=== PATIENT | male | born 1985 | race Hispanic/Latino ===

== ENCOUNTER 2019-03-14 07:17 | Inpatient (IN) | payer MEDICAID ==
[2019-03-14] MEDS ORDERED: Ondansetron PF 4 MG/2 ML Vial ONE (07:43)
[2019-03-14] MEDS ORDERED: Pantoprazole 80 MG in Sodium Chloride 0.9% 100 ML IVP SCH (08:00)
[2019-03-14 08:05] LABS: INR-International Normal Ratio 1.7; PTT 53.1 SEC (22.9-36.1); Prothrombin Time 19.4 SEC (12.0-14.7)
[2019-03-14] MEDS ORDERED: Pantoprazole 40 MG VIAL ONE (08:17)
--- NOTE | 2019-03-14 08:17 | ULT ---
Gallbladder ultrasound: Multiple grayscale and Doppler color flow images of right upper quadrant obtained according to protoc ol. INDICATION: Pain FINDINGS: Liver: Increased echogenicity. Slight nodularity of the hepatic contour. Gallbladder: No shadowing cholelithiasis. There is moderate distention. Gallbladder wall: Mild thickening. Kennedy's Sign: Positive. Common bile duct is normal. Ascites: None Incidental note of hepatofugal flow of the main portal vein. IMPRESSION: Mild gallbladder wall thickening and distention with positive Kennedy sign. Correlate with physical ex am for evidence of cholecystitis. Surgical consultation may prove useful. Hepatofugal flow documented within main portal vein. Correlate for evidence of portal hypertension. Increased hepatic echogenicity which may be on the basis of hepatocellular disease and/or hepatic diann atosis. A very slight nodular contour of the liver may relate to early cirrhotic changes.
[2019-03-14] MEDS ORDERED: Morphine 4 MG/ML VIAL ONE (10:58)
[2019-03-14] MEDS ORDERED: Ondansetron ODT 4 MG TAB PO PRN (11:44)
[2019-03-14] MEDS ORDERED: Acetaminophen 325 MG TAB PO PRN (11:44)
[2019-03-14] MEDS ORDERED: Octreotide Acetate 1,250 MCG in Sodium Chloride 0.9% 250 ML 250 ML IVPB SCH ×2 (11:45→14:30)
[2019-03-14] MEDS ORDERED: PROPOFOL 200 MG/20 ML VIAL ONE (11:49)
[2019-03-14] MEDS ORDERED: Lidocaine 1% PF 5 ML VIAL ONE (11:49)
--- NOTE | 2019-03-14 12:25 | CON ---
DATE OF CONSULTATION: HISTORY OF PRESENT ILLNESS: Micah Baltazar is a 34-year-old male patient, alcoholic, reported to [facility], because of onset of right upper and lateral abdominal pain yesterday. He has been experiencing nausea and vomiting, reported significant hematochezia and blood in his emesis. He was evaluated in [facility] and noted to have a sodium of 132, BUN 6, creatinine 0.9, bilirubin of 3.6, AST and ALT 67 and 19 respectfully, lipase 87. Ammonia 73. Lactic acid 1.5. White count was 7, hemoglobin 8.9, and platelet count 68,000. His drug screen was positive, presumptive for cocaine and opiates. His alcohol level was elevated. The patient reports he smokes more than 6 packs a day. He does not smoke. He had a CAT scan in [place] demonstrating mild gallbladder wall thickening, minimal fat stranding, no gallstones. He had an ultrasound of his gallbladder at this institution on arrival, noting normal bile duct caliber, no gallstones, and nodular liver. There are no other laboratories to compare at this institution. On his ultrasound, there was noted to be hepatofugal flow within the main portal vein and correlate for evidence of portal hypertension. Increased hepatic echogenicity suggesting hepatocellular disease or steatosis. The very nodular contour of liver may reflect early cirrhotic changes. Viral serology is not available. ALLERGIES: PENICILLIN. SOCIAL HISTORY: Tobacco, none. Alcohol, more than 6 packs a day. The patient has worked in [employer] off and on and lives with his father. PAST SURGICAL HISTORY: ORIF fibula, ORIF ankle, Endy Jd surgery at right elbow, laparoscopic band placement in 2006 when he weighed 420 pounds. He lost down to 275 pounds, currently weighs 320 pounds. He had all the saline removed from his Lap-Band 3 years ago and there is no restriction, this was intended to in [place]. The patient had a laparotomy 13 years ago for intraabdominal bleeding. He developed an incisional hernia in his upper midline incision and underwent laparoscopic mesh repair in [place], [place]. His laparotomy for his bleeding was performed in [facility] in [place]. PAST MEDICAL HISTORY: Thrombocytopenia, alcoholism, and suspect cirrhosis. REVIEW OF SYSTEMS: Otherwise noncontributory. PHYSICAL EXAMINATION: VITAL SIGNS: Heart rate 88, blood pressure 141/75, and respiratory rate 18. HEAD, EARS, EYES, NOSE, AND THROAT: Unremarkable. LUNGS: Clear to auscultation. CARDIAC: Regular rate and rhythm without murmur or gallop. ABDOMEN: Obese. Midline incision noted xiphoid to below umbilicus. Mild tenderness, right abdomen. Remainder of the abdomen is soft and nontender. EXTREMITIES: Unremarkable. Scars, right lower extremity consistent with past surgical history. ASSESSMENT AND PLAN: 1. Alcoholism with thrombocytopenia, nodular appearance, reflecting early cirrhosis on his ultrasound. His platelet count is low and his clotting studies are slightly abnormal. Currently, there is no definitive evidence for gallbladder disease and I do not think cholecystectomy is indicated. We will order a HIDA scan without ejection fraction to rule out cholecystitis. If he did need gallbladder surgeries, risks would be increased in the face of his probable early cirrhosis. We would suggest a viral serology. We would suggest gastrointestinal workup and evaluation. 2. Hematochezia, bleeding per rectum, anemia. Recommend gastrointestinal workup. 3. Positive drug screens. 4. Lap bariatric status, morbid obesity, lap band in place, but it has been deflated of all saline and has been cared for in [place]. No indications for intervention. Job ID: [id number]
--- NOTE | 2019-03-14 12:41 | HP ---
PRIMARY CARE PROVIDER: [facility] Call admission. Does not have a PCP. HISTORY OF PRESENT ILLNESS: The patient is transferred from [place] to [facility], referred to the [facility]. The patient woke up with abdominal pain, bloody diarrhea, dark to bright, nausea and vomiting with strings of red blood. No prior history of GI bleeding. PAST MEDICAL HISTORY: Cirrhosis, on furosemide 20 mg a day. ALLERGIES: TO PENICILLIN. PAST SURGICAL HISTORY: Fracture of the tibia with an ORIF, Endy Miles right elbow surgery, exploratory lap requiring a mesh, lap band surgery in the past. FAMILY HISTORY: No cirrhosis. Positive for hypertension. SOCIAL HISTORY: Single. Never smoked. He told me he drinks a small glass of wine at night. He told Ayala, he drank 6 beers a day. CODE STATUS: Full. No next of kin identified. REVIEW OF SYSTEMS: HEAD: No headaches, dizziness, or fainting. EYES: No double vision, blurred vision, or flashing light. EARS, NOSE, AND THROAT: No ear pain or drainage. No nasal bleeding. No trouble swallowing. CARDIAC: No chest pain. No orthopnea or paroxysmal nocturnal dyspnea. RESPIRATIONS: No cough, wheezing, or asthma. GASTROINTESTINAL: See Present Illness. GENITOURINARY: No hematuria or dysuria. MUSCULOSKELETAL: Legs swell long-term. NEUROLOGICAL: No stroke, seizure, or focal weakness. PSYCHIATRIC: No anxiety or depression. SKIN: Some bruising. It takes him a long time to heal. HEME/LYMPH: No tender or swollen lymph nodes in axilla, inguinal, or cervical area. PHYSICAL EXAMINATION: GENERAL: Still somewhat sleepy male. VITAL SIGNS: Blood pressure initially 136/68, blood pressure now 98/44, pulse 81 to 82, respiratory rate 16 to 20, room air saturations normal. HEAD, EYES, EARS, NOSE, AND THROAT: Revealed pupils equal and round. Extraocular movements intact. Sclerae . Tympanic membranes clear. Nose clear. Oral mucous membranes are wet. Dental hygiene is adequate. NECK: No jugular venous distention, adenopathy, or thyromegaly. CHEST: Clear to auscultation and percussion. HEART: Has a regular rate and rhythm. First and second heart sounds are clear. There are no appreciated murmurs or gallops. ABDOMEN: Soft. Bowel sounds are normal. There is no hepatosplenomegaly. No mass. No rebound. EXTREMITIES: Reveal 3+ edema. No cyanosis or clubbing. His edema extends to his panniculus of his lower abdomen. Pulses, carotid and radial pulses fully palpable. Femoral and pedal pulses are difficult to palpate. SKIN: Shows some minor bruising on his arms. No petechial hemorrhages. HEME/LYMPH: No tender or swollen lymph nodes in axilla, inguinal, or cervical area. NEUROLOGICAL: Cranial nerves 2 through 12 are intact. Moves all extremities. LABORATORY DATA: Sodium 132, potassium 4.3, chloride 101, CO2 of 21, BUN 6.8, creatinine 0.9, ammonia level 73, bilirubin 3.6, alkaline phosphatase 136, AST 67, ALT 19. Hemoglobin 8.9, white cell count 7.73, platelet count 68,000. Alcohol level 244. Urine drug screen positive for cocaine and narcotics. IMAGING STUDIES: EKG, regular sinus rhythm. Incomplete right bundle-branch block. No acute ST-T abnormality. Gallbladder ultrasound, no cholelithiasis. ADMITTING DIAGNOSES: Acute gastrointestinal bleeding, acute blood loss anemia, cirrhosis with markedly prolonged pro-time and thrombocytopenia, coagulopathy as mentioned above, cocaine abuse, alcohol abuse with current intoxication. PLAN: IMCU. 6 units fresh frozen plasma, then repeat pro-time. CBC q.6 hours. Transfuse p.r.n. for a hemoglobin less than 7. Start IV infusion octreotide. Start banana bag daily. Lorazepam for possible alcohol withdrawal. Consult has been obtained with Dr. Iain Isaacs, Gastroenterology. Job ID: [id number]
[2019-03-14] MEDS: Multivitamins, Adult 10 ML, Folic Acid 1 MG, Thiamine HCl 100 MG in Dextrose 5 %-0.45 %... IV SCH (12:54)
--- NOTE | 2019-03-14 13:53 | PDOC.FPRHP ---
- Allergies/Adverse Reactions Allergies Allergy/AdvReac Type Severity Reaction Status Date / Time Penicillins Allergy Verified 03/14/19 07:59 - History PMHx: PSHx: FHx: Social: - Vital signs BP: 114/59, Pulse: 77, Resp: 14, Temp: 97.5 (Oral), Pain: 8, O2 sat: 98 on Room Air, Time: 03/14/2019 13:50. FMR H&P: Upper Level - Plan Date/Time: 03/14/19 1353 I, [], have evaluated this patient and agree with findings/plan as outlined by internal corrosion specialist resident. Pertinent changes/additions are listed here.
[2019-03-14 14:21] LABS: #Eosinphils 0.2 thou/uL (0.0-0.7); #Lymphocytes 0.7 thou/uL (1.20-3.40); #Monocytes 0.4 thou/uL (0.11-0.59); #Neutrophils 1.8 thou/uL (1.40-6.50); %Basophils 0.6 % (0.0-1.0); %Eosinophils 7.8 % (0.0-10.0); %Lymphocytes 22.5 % (21.0-51.0); %Monocytes 11.2 % (0.0-10.0); %Neutrophils 57.9 % (42.0-75.0); Hemoglobin 8.1 g/dL (14.0-18.0); MDiff Complete? YES; Mean Corpuscular HGB CONC 33.9 g/dL (32.0-36.0); Mean Corpuscular Hemoglobin 31.9 pg (27.0-31.0); Mean Corpuscular Volume 94.1 fL (78.0-98.0); Mean Platelet Volume 7.5 fL (7.4-10.4); Ovalocytes SLIGHT = 2-5 cells (100X) (0-1/hpf); Platelet Count 60 thou/uL (130-400); Platelet Morphology Comment Appears Decreased; Polychromasia SLIGHT = 2-3 cells (100X) (0-2/hpf); Red Blood Cell (RBC) Count 2.55 mill/uL (4.70-6.10); Tear Drops SLIGHT = 2-5 cells (100X) (0-1/hpf); White Blood Cell (WBC) Count 3.2 thou/uL (4.8-10.8)
[2019-03-14 16:08] VITALS: BMI 43.3
[2019-03-14] MEDS ORDERED: Midazolam HCl 2 mg/2 ml Vial ONE ×2 (17:56→17:57)
[2019-03-14] MEDS ORDERED: Promethazine HCl 25 MG/ML VIAL IM PRN (18:19)
[2019-03-14] MEDS ORDERED: Ondansetron HCl/PF 4 MG/2 ML Vial IVP PRN (18:19)
[2019-03-14] MEDS ORDERED: Promethazine HCl 25 MG/ML VIAL SLOW IVP PRN (18:19)
[2019-03-14 19:30] LABS: #Eosinphils 0.1 thou/uL (0.0-0.7); #Lymphocytes 0.5 thou/uL (1.20-3.40); #Monocytes 0.3 thou/uL (0.11-0.59); #Neutrophils 1.5 thou/uL (1.40-6.50); %Basophils 0.4 % (0.0-1.0); %Eosinophils 5.9 % (0.0-10.0); %Lymphocytes 19.8 % (21.0-51.0); %Monocytes 12.1 % (0.0-10.0); %Neutrophils 61.7 % (42.0-75.0); Hemoglobin 8.3 g/dL (14.0-18.0); Mean Corpuscular HGB CONC 32.8 g/dL (32.0-36.0); Mean Corpuscular Hemoglobin 32.1 pg (27.0-31.0); Mean Corpuscular Volume 97.7 fL (78.0-98.0); Mean Platelet Volume 7.5 fL (7.4-10.4); Platelet Count 59 thou/uL (130-400); RBC Distribution Width 15.9 % (11.5-14.5); Red Blood Cell (RBC) Count 2.59 mill/uL (4.70-6.10); White Blood Cell (WBC) Count 2.4 thou/uL (4.8-10.8)
[2019-03-14] MEDS: Sodium Chloride 0.9% (PF) 10 ML VIAL FS PRN (20:01)
[2019-03-14] MEDS: Pantoprazole 40 MG VIAL IVP SCH (20:01)
[2019-03-14] MEDS ORDERED: Pantoprazole 40 MG VIAL IVP SCH (21:00)
[2019-03-14] MEDS: Morphine 2 MG/ML SYRINGE SLOW IVP PRN (23:03)
[2019-03-14] MEDS: Lorazepam 2 MG/ML VIAL SLOW IVP PRN (23:46)
--- NOTE | 2019-03-15 00:47 | OP ---
DATE OF PROCEDURE: 03/14/2019 PROCEDURE PERFORMED: Esophagogastroduodenoscopy. PREOPERATIVE DIAGNOSIS: Hematemesis and also history of black tarry stool. POSTOPERATIVE DIAGNOSES: 1. No esophageal varices seen. 2. No gastric varices seen. 3. Diffuse gastritis, portal gastropathy. 4. Normal duodenum. 5. At the time of endoscopy, stomach was completely empty of any blood or any coffee-ground material. DESCRIPTION OF PROCEDURE: The patient was placed on his left lateral position and was given sedation by Anesthesia Department. A Pentax video gastroscope under direct vision passed down the oropharynx, past the GE junction into the stomach. The esophageal mucosa appeared normal. I do not see any esophageal varices. There is no Holly-Amaya tear seen. Retroflexion failed to show any pathology in fundus and cardia. The gastric mucosa was diffusely hyperemic and surgeries show gastritis-portal gastropathy. In the incisura angularis, no lesions. At the duodenal bulb, descending duodenum, no pathology seen. The stomach decompressed and the scope removed. RECOMMENDATIONS: 1. Discontinue n.p.o. 2. Clear liquid diet. 3. Follow up H and H. Job ID: [id number]
[2019-03-15] MEDS: Morphine 2 MG/ML SYRINGE SLOW IVP PRN ×6 (01:33→21:34)
[2019-03-15 02:13] LABS: INR-International Normal Ratio 1.5; PTT 41.9 SEC (22.9-36.1); Prothrombin Time 18.3 SEC (12.0-14.7)
[2019-03-15 02:25] LABS: Anion Gap 13 mmol/L (10-20); BUN (Urea Nitrogen) 4 mg/dL (8.9-20.6); Calc. Creatinine Clearance 267 mL/min (70-130); Calcium 8.5 mg/dL (7.8-10.44); Carbon Dioxide 21 mmol/L (22-29); Chloride 108 mmol/L (98-107); Estimated GFR-MDRD Greater than 90; Glucose 109 mg/dL (70-105); Potassium 4.4 mmol/L (3.5-5.1); Sodium 138 mmol/L (136-145)
[2019-03-15 02:30] LABS: #Eosinphils 0.2 thou/uL (0.0-0.7); #Lymphocytes 0.6 thou/uL (1.20-3.40); #Monocytes 0.4 thou/uL (0.11-0.59); #Neutrophils 2.1 thou/uL (1.40-6.50); %Basophils 0.3 % (0.0-1.0); %Eosinophils 5.1 % (0.0-10.0); %Lymphocytes 17.5 % (21.0-51.0); %Monocytes 10.9 % (0.0-10.0); %Neutrophils 66.2 % (42.0-75.0); Hemoglobin 7.5 g/dL (14.0-18.0); Mean Corpuscular HGB CONC 34.8 g/dL (32.0-36.0); Mean Corpuscular Hemoglobin 33.9 pg (27.0-31.0); Mean Corpuscular Volume 97.3 fL (78.0-98.0); Mean Platelet Volume 7.1 fL (7.4-10.4); Platelet Count 55 thou/uL (130-400); RBC Distribution Width 15.8 % (11.5-14.5); White Blood Cell (WBC) Count 3.2 thou/uL (4.8-10.8)
[2019-03-15] MEDS: Lorazepam 2 MG/ML VIAL SLOW IVP PRN ×2 (05:25→22:56)
--- NOTE | 2019-03-15 08:03 | CON ---
DATE OF CONSULTATION: 03/14/2019 REASON FOR CONSULTATION: Abdominal pain, nausea, vomiting, and also history of passing black tarry stool to fresh blood. HISTORY OF PRESENT ILLNESS: Mr. Micah Baltazar is a 34-year-old male with a history of fatty liver from before. Also history of chronic alcohol abuse. He drinks at least 1 six-pack of beer everyday. The patient had not seen a doctor for several years as per the patient. The patient has had lap banding done for obesity more than 13 years ago and he had lost some probably about 100 pounds. The patient has no prior history of any liver cirrhosis. He presumed he had liver cirrhosis because of fatty liver and alcohol abuse. He has not seen a flame cutting supervisor for a long time. The patient tells me that he felt dizzy, weakness, fatigue for 4 weeks ago, and he called the ambulance and was taken to [facility]. For the anemia, he was given blood transfusion. He also has 4+ pitting edema and sent home on diuretics. The patient had developed abdominal pain with some nausea and retching. He states this happened last night and he vomited 4 times. He saw a small amount of blood, no large amount of blood. He is already having diarrhea and multiple times going to the bathroom. The stools are dark and had tarry stools and also some dark blood. The patient has had no nausea or vomiting overnight. He also has no diarrhea overnight. At the present time, he appears very comfortable, in no acute distress. He is not nauseous anymore. He has no similar episodes in the past. He has no relevant history. ALLERGIES: PENICILLIN. SOCIAL HISTORY: The patient does not smoke, but he is alcohol abuser. When he was a lot younger, he was drinking hard liquor in large amounts. For the last few years, he has been drinking 1 six-pack of beer everyday. No history of drug abuse. MEDICAL ILLNESS: 1. Morbid obesity, status post gastric lap banding done 13 years ago and it is not filled with saline anymore. 2. Hypertension. 3. History of fatty liver. 4. Anemia. 5. Status post lap banding 13 years ago and does not use the lap banding anymore. 6. History of hernia repair of the mesh. 7. History of spontaneous bleeding . MEDICATION LIST: Reviewed. FAMILY HISTORY: There is no family history of cancer, heart disease, or stroke. REVIEW OF SYSTEMS: 10-point system review is remarkable basically for abdominal pain, nausea, vomiting, and diarrhea. Abdominal pain is across the abdomen. Today, he still has mild abdominal pain, but not as bad as before. PHYSICAL EXAMINATION: GENERAL: He is very obese, appears comfortable. He is in no distress. VITAL SIGNS: Very stable. Pulse is 82, blood pressure 130/70. HEENT: Conjunctivae clear. NECK: Supple. No adenitis or thyromegaly noted. CARDIOVASCULAR SYSTEM: First and second heart sounds normal. LUNGS: Clear to auscultation. ABDOMEN: Very flabby. He is very obese. Abdomen is mildly tender. There is no rebound or guarding. No organomegaly or masses. EXTREMITIES: Reveal 3+ edema. CENTRAL NERVOUS SYSTEM: Grossly within normal limits. LABORATORY DATA: From this morning, CBC; WBC 3200, hemoglobin is 8.1, hematocrit 24, platelet count is 60,000, polys 57, lymphocytes 22, monocytes 11. Chemistry panel, . Abdominal sonogram shows positive Kennedy sign, but he has normal common bile duct and also no gallstones. IMPRESSION: 1. A 34-year-old male with abdominal pain, nausea, vomiting, vomiting small amount of blood. He is having more of a tarry stool and dark blood per rectum. He tells me he had anemia 4 weeks ago and was hospitalized at [facility], was given blood transfusion. He tells me no workup was done there. 2. Morbid obesity, status post lap banding 13 years ago. 3. Hypertension. 4. History of intra-abdominal bleeding 11 years ago and has had a laparotomy, which was done in [place]. 5. The patient is not really forthcoming with history. He tells me that he had no problem before and has never seen a flame cutting supervisor before . Overall impression based on the findings of thrombocytopenia and history of alcohol abuse, I believe most likely he has chronic liver disease, possibly liver cirrhosis. PLAN: EGD later on today. I will make further recommendation after the EGD. Job ID: [id number]
[2019-03-15] MEDS: Pantoprazole 40 MG VIAL IVP SCH ×2 (08:45→20:28)
[2019-03-15] MEDS: Multivitamins, Adult 10 ML, Folic Acid 1 MG, Thiamine HCl 100 MG in Dextrose 5 %-0.45 %... IV SCH (15:11)
--- NOTE | 2019-03-15 17:18 | CON ---
DATE OF CONSULTATION: 03/15/2019 SERVICE: Pulmonary Medicine. REASON FOR CONSULTATION: IMCU patient. HISTORY OF PRESENT ILLNESS: The patient is a 34-year-old male with past medical history significant for extensive alcohol abuse and anxiety disorder. He self medicates with alcohol. He typically drinks 24 beers on a daily basis. He denies any current fevers, chills, or nausea. He was in his usual state of health when he started having hematemesis and bright red blood per rectum. Since he has been in the emergency room in the hospital, he has not had any additional episodes of bleeding. He denies any current lightheadedness, nausea, vomiting, fevers, or chills. Otherwise, he is returning to his usual state of health. His hemoglobin is currently 7.5. His baseline is not far off. PAST MEDICAL HISTORY: Cirrhosis, advanced. PAST SURGICAL HISTORY: 1. ORIF of tibia. 2. Endy Jd right elbow surgery. 3. Laparotomy. 4. Lap band surgery. FAMILY HISTORY: Noncontributory. SOCIAL HISTORY: Negative for tobacco or illicit drug use. He has extensive history of alcohol use/abuse. He drinks in excess of 20 beers on a daily basis. ALLERGIES: PENICILLIN. MEDICATIONS: List of the patient's inpatient medications were reviewed. No specific updates were made at this time. REVIEW OF SYSTEMS: General; head, ears, eyes, nose, and throat; cardiovascular; respiratory; GI; ; musculoskeletal; neurologic; and skin is negative except as mentioned in the HPI. PHYSICAL EXAMINATION: VITAL SIGNS: Afebrile, pulse 72, blood pressure 136/58, respirations 25, and saturation 96%, currently on 2L nasal cannula. GENERAL: The patient is awake and alert, in no apparent distress. LUNGS: Very good air entry. No prolonged expiratory phase or wheezing is appreciated. HEART: Normal rate. Regular. ABDOMEN: Soft. Distended. Bowel sounds are present. He has shifting dullness. : No Samuel catheter. NEUROLOGIC: Grossly nonfocal. He does not actually have any asterixis. LABORATORY DATA: WBC 3.2, hemoglobin 7.5, and platelets 55,000, gently downtrending. INR 1.5. Basic metabolic profile is essentially unremarkable. Plasma alcohol level is 138. IMAGING STUDIES: Abdominal ultrasound demonstrates mild gallbladder wall thickening and distention with positive Kennedy sign. Cirrhotic morphology of the liver is noted. ASSESSMENT: 1. Cirrhosis. 2. Alcohol abuse. 3. Pancytopenia. 4. Hematochezia. DISCUSSION AND PLAN: I will keep the patient in the IMCU for the time being. I will repeat hemoglobin tomorrow morning. I will also recheck a B12 level to make certain that he is not deficient in this. His pancytopenia is almost certainly secondary to his cirrhosis and alcohol abuse. I counseled him on quitting. He has actually brought up a subject of using Antabuse. He thinks this would be a good option for him as if the current. He indicates that he drinks because of uncontrolled anxiety. As such , he will probably need to establish care with a primary care physician in the outpatient setting to get him on appropriate medications for that. I will continue to follow while he remains in the IMCU. 70 minutes have been devoted to this patient in various activities. I personally reviewed all imaging studies and laboratory data noted within this document. For fifty percent of this time, I was interacting with the patient at the bedside or coordinating care with the care team. For the remainder of the time I was immediately available to the patient in the hospital unit. Job ID: [id number] MTDD
--- NOTE | 2019-03-15 18:35 | PRG ---
DATE OF SERVICE: 03/15/2019 SUBJECTIVE: Micah Baltazar is a 34-year-old male. He has had hematemesis, melena, and also passing blood to the rectum. He had an EGD yesterday, which revealed portal hypertensive gastropathy. He also has gastritis. No active bleeding seen. The patient has had no stool since admission. He is tolerating clear liquid diet. Blood count has been drifting down slowly. The hemoglobin dropped to 7.5 from 8.3, hematocrit 25.4, and platelet count is 55,000. OBJECTIVE: GENERAL: Appears comfortable, in no acute distress. VITAL SIGNS: Afebrile, pulse is 77, and blood pressure is 110/70. CARDIOVASCULAR AND LUNGS: Within normal limits. ABDOMEN: Soft. Abdomen is tender across the abdomen. There is no rebound or guarding. I did speak to Mr. Baltazar about having a colonoscopy because of hematochezia I will plan to prep the patient for a colonoscopy tomorrow. Job ID: [id number]
--- NOTE | 2019-03-15 19:16 | PDOC.HOSPP ---
- Subjective Encounter Date: 03/15/19 Encounter Time: 15:35 (Late entry note, patient seen mid-afternoon) Subjective: Resting; tolerating diet. c/o back pain ("my sciatica is acting up") Presently on octreotide infusion. No clinical evidence of bleeding thus far; EGD report reviewed. Endorses shakiness when stops alcohol. Seems motivated to consider quitting. - Objective Vital Signs & Weight: Vital Signs (12 hours) Temp Pulse Ox 03/15/19 15:20 97.9 F 03/15/19 11:21 98.5 F 03/15/19 07:31 97 Weight Weight 336 lb 5 oz Most Recent Monitor Data Heart Rate from ECG 77 NIBP 169/82 NIBP BP-Mean 111 Respiration from ECG 19 SpO2 100 I&O: 03/14/19 03/15/19 03/16/19 06:59 06:59 06:59 Intake Total 2520 Output Total 975 600 Balance 1545 -600 Result Diagrams: 03/15/19 01:56 03/15/19 01:56 ROS - Medication Medications: Active Medications Generic Name Dose Route Start Last Admin Trade Name Freq PRN Reason Stop Dose Admin Multivitamins 10 ml/ Folic 1,011.2 mls @ 250 mls/hr 03/14/19 12:00 03/15/19 15:11 Acid 1 mg/ Thiamine HCl 100 mg IV 1,011.2 mls / Dextrose/Sodium Chloride Q24HR JANELL Administration Lorazepam 0.5 mg 03/14/19 11:54 03/15/19 05:25 Ativan SLOW IVP 0.5 mg Q6H PRN Administration Anxiety/Agitation Morphine Sulfate 2 mg 03/14/19 22:53 03/15/19 18:03 Morphine SLOW IVP 2 mg Q4H PRN Administration Pain Pantoprazole Sodium 40 mg 03/14/19 21:00 03/15/19 08:45 Protonix IVP 40 mg Q12HR JANELL Administration Sodium Chloride 10 ml 03/14/19 11:57 03/14/19 20:01 Normal Saline Pf FS 10 ml PRN PRN Administration RECONSTITUTION - Exam General - other findings: Comfortable, a bit sleepy but awakens easily to answer questions Eye: anicteric sclera ENT: normocephalic atraumatic Neck: supple, no JVD Heart: RRR Respiratory: CTAB Gastrointestinal: non-tender, no guarding Gastrointestinal - other findings: slight distention Extremities: no edema Neurological: no focal deficits Psychiatric: A&O x 3 Hosp A/P (1) Alcoholic liver disease Code(s): K70.9 - ALCOHOLIC LIVER DISEASE, UNSPECIFIED Status: Chronic (2) Cirrhosis Code(s): K74.60 - UNSPECIFIED CIRRHOSIS OF LIVER Status: Acute Qualifiers: Hepatic cirrhosis type: alcoholic cirrhosis (3) Portal hypertensive gastropathy Code(s): K76.6 - PORTAL HYPERTENSION; K31.89 - OTHER DISEASES OF STOMACH AND DUODENUM Status: Acute (4) Alcohol abuse Code(s): F10.10 - ALCOHOL ABUSE, UNCOMPLICATED Status: Acute (5) Anxiety Code(s): F41.9 - ANXIETY DISORDER, UNSPECIFIED Status: Chronic (6) Gastritis Code(s): K29.70 - GASTRITIS, UNSPECIFIED, WITHOUT BLEEDING Status: Acute Qualifiers: Gastritis type: alcoholic (7) Pancytopenia Code(s): D61.818 - OTHER PANCYTOPENIA Status: Acute - Plan 1. Heme - Pancytopenia likely due to cirrhosis; AM lab ordered, follow 2. GI - colonoscopy planned per GI (hematochezia prior to admit). Octreotide infusion, PPI. 3. Alcohol - monitor for s/sx withdrawl in coming hours; MVI/thiamine/folate 4. Back pain - symptomatic treatment with Cullen/morphine
[2019-03-15] MEDS ORDERED: HYDROcodone/Acetaminophen 5/325 mg Tablet PO PRN (19:21)
[2019-03-15] MEDS: Sodium Chloride 0.9% (PF) 10 ML VIAL FS PRN (20:28)
[2019-03-15] MEDS: HYDROcodone/Acetaminophen 10/325 mg Tablet PO PRN (22:50)
[2019-03-16] MEDS: Morphine 2 MG/ML SYRINGE SLOW IVP PRN ×2 (01:19→17:49)
[2019-03-16] MEDS: HYDROcodone/Acetaminophen 10/325 mg Tablet PO PRN ×2 (03:50→21:00)
[2019-03-16] MEDS ORDERED: GoLYTELY 4,000 ml Bottle PO SCH (05:00)
[2019-03-16 07:12] LABS: #Eosinphils 0.3 thou/uL (0.0-0.7); #Lymphocytes 0.8 thou/uL (1.20-3.40); #Monocytes 0.4 thou/uL (0.11-0.59); #Neutrophils 1.9 thou/uL (1.40-6.50); %Basophils 1.1 % (0.0-1.0); %Eosinophils 9.4 % (0.0-10.0); %Lymphocytes 23.2 % (21.0-51.0); %Monocytes 12.4 % (0.0-10.0); %Neutrophils 53.9 % (42.0-75.0); Hemoglobin 7.8 g/dL (14.0-18.0); Mean Corpuscular HGB CONC 34.2 g/dL (32.0-36.0); Mean Corpuscular Hemoglobin 33.3 pg (27.0-31.0); Mean Corpuscular Volume 97.4 fL (78.0-98.0); Mean Platelet Volume 7.2 fL (7.4-10.4); Platelet Count 62 thou/uL (130-400); RBC Distribution Width 15.6 % (11.5-14.5); Red Blood Cell (RBC) Count 2.35 mill/uL (4.70-6.10); White Blood Cell (WBC) Count 3.5 thou/uL (4.8-10.8)
[2019-03-16] MEDS ORDERED: Cyanocobalamin 1000 MCG/ML VIAL IM SCH (07:15)
[2019-03-16 07:21] LABS: Anion Gap 9 mmol/L (10-20); BUN (Urea Nitrogen) 4 mg/dL (8.9-20.6); Calc. Creatinine Clearance 256 mL/min (70-130); Calcium 8.6 mg/dL (7.8-10.44); Carbon Dioxide 26 mmol/L (22-29); Chloride 104 mmol/L (98-107); Estimated GFR-MDRD Greater than 90; Glucose 105 mg/dL (70-105); Magnesium 1.5 mg/dL (1.6-2.6); Potassium 3.9 mmol/L (3.5-5.1); Sodium 135 mmol/L (136-145)
--- NOTE | 2019-03-16 07:29 | PRG ---
DATE OF SERVICE: 03/16/2019 SERVICE: Pulmonary Medicine. INTERVAL HISTORY: The patient is doing really well from respiratory standpoint. He is breathing comfortably. He had one bowel movement. There is still a little bit of blood in it. That being said, he is not profusely bleeding. He denies any current fevers, chills, or overnight events. PHYSICAL EXAMINATION: VITAL SIGNS: Afebrile, pulse 79, blood pressure 156/78, respirations 19, saturations 96% on room air. GENERAL: The patient is awake and alert, in no apparent distress. LUNGS: Very good air entry. No prolonged expiratory phase or wheezing is appreciated. HEART: Normal rate, regular. ABDOMEN: Soft, nontender, nondistended. Bowel sounds are positive. MUSCULOSKELETAL: No cyanosis or clubbing. No pitting in the bilateral lower extremities. NEUROLOGIC: Grossly nonfocal. LABORATORY DATA: Currently pending. ASSESSMENT: 1. Cirrhosis. 2. Alcohol abuse. 3. Pancytopenia. 4. GI Bleed with Hematochezia. DISCUSSION AND PLAN: The patient is completing his bowel prep now. He is going to go down for a colonoscopy later today. Hopefully, this will identify the source of his blood loss. Laboratories in this morning are currently pending. If his hemoglobin is roughly stable, he can be considered for transition out of the ICU to the medical unit. He is very interested in using Antabuse. He thinks that this would be the right motivation for him to quit drinking alcohol altogether. I do not think it is a good drug for most people, but in somebody who thinks is a good idea for them, I think it is reasonable to use. He will need close followup with primary care physician, who should consider a polysomnogram in the outpatient setting, and GI moving forward for life. Once he moved to the floor, have no further requirements for inpatient Pulmonary/Critical Care opinion, and we will sign off. Please call with additional questions or concerns through time. Job ID: [id number] [facility]
[2019-03-16 07:41] LABS: Hemoglobin 7.9 g/dL (14.0-18.0)
[2019-03-16] MEDS: Pantoprazole 40 MG VIAL IVP SCH ×2 (09:00→21:02)
[2019-03-16] MEDS: Folic Acid 1 MG TAB PO SCH (09:00)
[2019-03-16] MEDS: predniSONE 20 MG TAB PO SCH (09:00)
[2019-03-16] MEDS: Thiamine 100 MG TAB PO SCH (09:01)
[2019-03-16] MEDS ORDERED: Magnesium Sulfate 4 GM in Sodium Chloride 0.9% 250 ML 250 ML IVPB SCH (13:00)
[2019-03-16] MEDS ORDERED: PROPOFOL 200 MG/20 ML VIAL ONE (15:54)
--- NOTE | 2019-03-16 19:16 | PDOC.HOSPP ---
- Subjective Encounter Date: 03/16/19 Encounter Time: 17:30 Subjective: Patient seen following colonoscopy. Denies abdominal pain/nausea. Back pain improved. Feels a bit anxious/shaky. - Objective Vital Signs & Weight: Vital Signs (12 hours) Temp Pulse Ox 03/16/19 15:19 97.5 F L 03/16/19 11:05 98.2 F 03/16/19 07:32 98.0 F 03/16/19 07:18 96 Weight Weight 336 lb 5 oz Most Recent Monitor Data Heart Rate from ECG 77 NIBP 130/71 NIBP BP-Mean 90 Respiration from ECG 16 SpO2 100 I&O: 03/15/19 03/16/19 03/17/19 06:59 06:59 06:59 Intake Total 2520 3520 Output Total 975 1200 Balance 1545 2320 Result Diagrams: 03/16/19 07:34 03/16/19 06:44 ROS - Medication Medications: Active Medications Generic Name Dose Route Start Last Admin Trade Name Freq PRN Reason Stop Dose Admin Hydrocodone Bitart/Acetaminophen 1 tab 03/15/19 19:22 03/16/19 03:50 Ninole 10/325 PO 1 tab Q4H PRN Administration Moderate Pain (4-6) Folic Acid 1 mg 03/16/19 09:00 03/16/19 09:00 Folvite PO 1 mg DAILY JANELL Administration Octreotide Acetate 1,250 mcg/ 251.25 mls @ 10.05 mls/hr 03/14/19 14:30 20:30 Sodium Chloride IVPB 251.25 mls INF JANELL Administration 50 MCG/HR Lorazepam 0.5 mg 03/14/19 11:54 03/15/19 22:56 Ativan SLOW IVP 0.5 mg Q6H PRN Administration Anxiety/Agitation Morphine Sulfate 2 mg 03/15/19 19:22 03/16/19 17:49 Morphine SLOW IVP 2 mg Q4H PRN Administration Severe Pain (7-10) Ondansetron HCl 4 mg 03/14/19 11:44 03/16/19 06:35 Zofran Odt PO 4 mg Q6H PRN Administration Nausea/Vomiting Pantoprazole Sodium 40 mg 03/14/19 21:00 03/16/19 09:00 Protonix IVP 40 mg Q12HR JANELL Administration Prednisone 40 mg 03/16/19 08:00 03/16/19 09:00 Prednisone PO 40 mg QAM-WM JANELL Administration Sodium Chloride 10 ml 03/14/19 11:57 03/15/19 20:28 Normal Saline Pf FS 10 ml PRN PRN Administration RECONSTITUTION Thiamine HCl 100 mg 03/16/19 09:00 03/16/19 09:01 Thiamine PO 100 mg DAILY JANELL Administration - Exam NAD General - other findings: Fairly comfortable Eye: PERRL ENT: moist mucosa Neck: supple, no lymphadenopathy Heart: RRR Respiratory: CTAB Gastrointestinal: soft, non-tender Extremeties - other findings: BLE 1+ Skin: no rashes Psychiatric: A&O x 3 Psychiatric - other findings: No tremor noted, endorses anxiety Hosp A/P (1) Alcoholic liver disease Code(s): K70.9 - ALCOHOLIC LIVER DISEASE, UNSPECIFIED Status: Chronic (2) Cirrhosis Code(s): K74.60 - UNSPECIFIED CIRRHOSIS OF LIVER Status: Acute Qualifiers: Hepatic cirrhosis type: alcoholic cirrhosis (3) Portal hypertensive gastropathy Code(s): K76.6 - PORTAL HYPERTENSION; K31.89 - OTHER DISEASES OF STOMACH AND DUODENUM Status: Acute (4) Alcohol abuse Code(s): F10.10 - ALCOHOL ABUSE, UNCOMPLICATED Status: Acute (5) Anxiety Code(s): F41.9 - ANXIETY DISORDER, UNSPECIFIED Status: Chronic (6) Gastritis Code(s): K29.70 - GASTRITIS, UNSPECIFIED, WITHOUT BLEEDING Status: Acute Qualifiers: Gastritis type: alcoholic (7) Pancytopenia Code(s): D61.818 - OTHER PANCYTOPENIA Status: Acute - Plan 1. Heme - Pancytopenia likely due to cirrhosis; AM lab ordered, follow H/H 2. GI - EGD/colonoscopy. Operative report colo pending. EGD without clear source of bleeding. Octreotide infusion completed, continue PPI. 3. Alcohol - monitor for s/sx withdrawl in coming hours; MVI/thiamine/folate. Interest in antabuse noted, would likely need to pursue in conjunction with addiction environmental safety specialist. 4. Back pain - symptomatic treatment with Ninole/morphine, better 5. Transfer to floor
[2019-03-16] MEDS: Sodium Chloride 0.9% (PF) 10 ML VIAL FS PRN (21:02)
[2019-03-16] MEDS: Lorazepam 2 MG/ML VIAL SLOW IVP PRN (21:06)
--- NOTE | 2019-03-16 22:06 | OP ---
DATE OF PROCEDURE: 03/16/2019 OPERATIVE PROCEDURE: Colonoscopy. PREOPERATIVE DIAGNOSES: Anemia, gastrointestinal bleeding. POSTOPERATIVE DIAGNOSIS: Normal colonoscopy except for hemorrhoids. DESCRIPTION OF PROCEDURE: The patient was placed on his left lateral position and was given sedation by Anesthesia Department. A rectal exam was done before the scope was advanced into the rectum. The patient was found to have some hemorrhoids. A Pentax video colonoscope was introduced into the rectum and advanced all the way into the cecum. The prep is good except for a large amount of and there was large amount of thick liquids throughout the colon . The mucosa appears normal throughout the colon with normal vascular pattern. The appendiceal orifice, ileocecal valve, cecum, no pathology seen. Withdrawal of scope from the cecum, ascending colon, hepatic flexure, no pathology seen. The transverse colon, splenic flexure, descending colon, sigmoid colon, no pathology. Retroflexion of scope in the rectum showed large hemorrhoids. Job ID: [id number]
[2019-03-17] MEDS: HYDROcodone/Acetaminophen 10/325 mg Tablet PO PRN ×2 (00:48→05:09)
[2019-03-17] MEDS: Lorazepam 2 MG/ML VIAL SLOW IVP PRN (05:10)
[2019-03-17 06:12] LABS: #Eosinphils 0.3 thou/uL (0.0-0.7); #Lymphocytes 0.9 thou/uL (1.20-3.40); #Monocytes 0.7 thou/uL (0.11-0.59); #Neutrophils 3.6 thou/uL (1.40-6.50); %Basophils 0.3 % (0.0-1.0); %Eosinophils 4.6 % (0.0-10.0); %Monocytes 12.1 % (0.0-10.0); Mean Corpuscular HGB CONC 34.1 g/dL (32.0-36.0); Mean Corpuscular Hemoglobin 32.8 pg (27.0-31.0); Mean Platelet Volume 7.1 fL (7.4-10.4); Platelet Count 67 thou/uL (130-400); RBC Distribution Width 15.5 % (11.5-14.5); Red Blood Cell (RBC) Count 2.44 mill/uL (4.70-6.10); White Blood Cell (WBC) Count 5.4 thou/uL (4.8-10.8)
[2019-03-17] MEDS: predniSONE 20 MG TAB PO SCH (08:17)
[2019-03-17] MEDS: Thiamine 100 MG TAB PO SCH (08:17)
[2019-03-17] MEDS: Folic Acid 1 MG TAB PO SCH (08:17)
[2019-03-17] MEDS: Pantoprazole 40 MG VIAL IVP SCH (08:17)
[2019-03-17 12:16] VITALS: BP 123/72; TEMP 97.8
--- NOTE | 2019-03-17 19:28 | DIS ---
DATE OF ADMISSION: 03/14/2019 DATE OF DISCHARGE: 03/17/2019 REASON FOR HOSPITALIZATION: Abdominal pain and GI bleeding. SIGNIFICANT FINDINGS: The patient confirmed to have hemorrhoids on colonoscopy and gastritis on EGD. PROCEDURES PERFORMED AND TREATMENTS RENDERED: The patient was seen by Gastroenterology and had esophagogastroduodenoscopy and colonoscopy performed- please see full operative reports for details. CONDITION ON DISCHARGE: Stable. SPECIFIC INSTRUCTIONS FOR THE PATIENT/FAMILY: 1. The patient is to follow up with primary care physician in the next 5 to 7 days-or return to acute care hospital immediately for re-evaluation if unable to be seen. 2. Follow up with Gastroenterology in the next 1 to 2 weeks-or return to acute care hospital immediately if unable to be seen. 3. The patient to take all medications as outlined. 4. The patient to return to acute care hospital immediately if signs or symptoms return, worsen, or any other new symptoms occur. DISCHARGE MEDICATIONS: 1. Disulfiram 125 mg one tab p.o. daily. 2. Folic acid 0.4 mg one tab p.o. daily. 3. Thiamine 100 mg one tab p.o. daily. 4. Zofran 4 mg p.o. q.6 hours p.r.n. nausea and vomiting. 5. Protonix 40 mg one tab p.o. b.i.d. 6. Hydroxyzine 50 mg one tab p.o. t.i.d. 7. Seroquel 100 mg one tab p.o. at bedtime. HOSPITAL COURSE: Mr. Baltazar is a pleasant 34-year-old gentleman who presented to [facility] on 03/14/2019 with abdominal pain, GI bleeding, and alcohol abuse. He was initially presented to [place] and then was transferred for higher level of care. The patient does admit to daily alcohol use with greater than one six- pack per day every day. The patient denies any prior history of gastrointestinal bleeding or history of cirrhosis. The patient states that when abdominal pain worsened and he started having blood in his stool, he became concerned and presented to the emergency department for further evaluation. The patient was seen by Gastroenterology, please see full consultation and operative reports for details. The patient went for colonoscopy and EGD-please see full operative reports for details. The patient confirmed to have diffuse gastritis and portal gastropathy on EGD from 03/14/2019. The patient confirmed to have external hemorrhoids, which is the likely source of bright red blood in his stool. The patient with no other significant pathology on colonoscopy. The patient was monitored with serial hemoglobins, and on the day of discharge, his hemoglobin was 8.[address] since arrival. The patient was recommended safe for discharge with close followup in the outpatient setting. The patient recommended to take all medications as outlined. The patient recommended to follow up with primary care physician and gastroenterology as directed and return to acute care hospital immediately if signs or symptoms return, worsen, or any other new symptoms occur. Greater than 37 minutes spent coordinating care and discharge process. Job ID: [id number] [email or web address]
== END 2019-03-17 12:24 | disposition home or self-care (01) | DRG 393 ==
LOC: ERS 07:17 → ERHOLD 11:39 → IMCU/EMU 15:19 → T4-A 03-16 21:52
PROVIDERS: ADMIT Internal Medicine; ATTEND Internal Medicine
PROC: 0DJ08ZZ Inspection of Upper Intestinal Tract, Via Natural or Artificial Opening Endoscopic (ICD-10-PCS; principal; 2019-03-14)
PROC: 30233K1 Transfusion of Nonautologous Frozen Plasma into Peripheral Vein, Percutaneous Approach (ICD-10-PCS; 2019-03-14)
PROC: 0DJD8ZZ Inspection of Lower Intestinal Tract, Via Natural or Artificial Opening Endoscopic (ICD-10-PCS; 2019-03-16)
DX: K64.4 Residual hemorrhoidal skin tags (principal); K29.71 Gastritis, unspecified, with bleeding; D62 Acute posthemorrhagic anemia; D68.9 Coagulation defect, unspecified; K76.6 Portal hypertension; D61.818 Other pancytopenia; K70.30 Alcoholic cirrhosis of liver without ascites; F14.129 Cocaine abuse with intoxication, unspecified; K31.89 Other diseases of stomach and duodenum; F41.9 Anxiety disorder, unspecified; M54.9 Dorsalgia, unspecified; Z88.0 Allergy status to penicillin
CPT/HCPCS: 36415; 36416; 36430; 76705; 80048; 80307; 83735; 85025; 85610; 85730; 86850; 86900; 86901; 94760; 96365; 96366; 96375; 96376; C9113; J1956; J2001; J2060; J2250; J2270; J2354; J2405; J2704; J3411; J3420; J3475; J3490; J7042; J7050; J7512; P9059; Q0162